=== PATIENT | male | born 1980 | race Caucasian/White ===

== ENCOUNTER 2017-02-02 22:36 | Emergency (ER) | payer SELFPAY ==
[~2017-02-02] VITALS: Ht 188 cm; Wt 66.7 kg
[~2017-02-02 22:36] MED LIST: KEFLEX500 MG PO; MOTRIN IB200 MG PO; TYLENOL325 MG PO
[2017-02-02] MEDS ORDERED: PENICILLIN V P500 MG PO (23:13)
== END 2017-02-02 23:40 | disposition home or self-care (01) ==
LOC: ED 22:36
DX: K02.9 Dental caries, unspecified (principal); F17.200 Nicotine dependence, unspecified, uncomplicated
CPT/HCPCS: 99283

== ENCOUNTER 2017-11-16 22:07 | Emergency (ER) | payer MEDICAID ==
[~2017-11-16] VITALS: Ht 185.4 cm; Wt 59.0 kg
[~2017-11-16 22:07] MED LIST changes: +PENICILLIN V P500 MG PO
[2017-11-16] MEDS ORDERED: IBUPROFEN200 M1 PO (22:16)
[2017-11-16] MEDS ORDERED: PENICILLIN V P500 MG PO (22:26)
== END 2017-11-16 22:36 | disposition home or self-care (01) ==
LOC: ED 22:07
DX: K02.9 Dental caries, unspecified (principal); F17.200 Nicotine dependence, unspecified, uncomplicated
CPT/HCPCS: 99283

== ENCOUNTER 2018-10-17 18:56 | Inpatient (IN) | payer OTHER ==
[~2018-10-17] VITALS: Ht 185.4 cm; Wt 57.0 kg
[~2018-10-17 18:56] MED LIST changes: +IBUPROFEN800 MG PO
--- OUTSIDE RECORDS SUMMARY | 2018-10-17 19:00 | XMS ---
PreManage Notification: RIGOBERTO ATKINS Security Advertising Photographer Events No recent Security Events currently on file CRITERIA MET - Group Notification CARE PROVIDERS There are no care providers on record at this time. Berna has no Care Guidelines for this patient. Shannon VISIT COUNT (12 MO.) 2 ARCHIE Ross TOTAL 2 NOTE: Visits indicate total known visits. ED/UCC VISIT TRACKING (12 MO.) 10/17/2018 18:57 [facility] [place] TYPE: Emergency COMPLAINT: - POSS PNEUMOTHORAX 11/16/2017 22:[address] [facility] [place] TYPE: Emergency COMPLAINT: - DENTAL/MOUTH PAIN,NON INJURY DIAGNOSES: - Nicotine dependence, unspecified, uncomplicated - OTHER SPECIFIED DISORDERS OF TEETH AND SUPPORTING STRUCTURES - Dental caries, unspecified INPATIENT VISIT TRACKING (12 MO.) No inpatient visits to display in this time frame [email or web address]
--- NOTE | 2018-10-17 21:50 | NUR ---
PATIENT ARRIVED FROM ER AND SETTLED INTO BED AND ADMISSION BEGAN.
--- NOTE | 2018-10-17 23:12 | NUR ---
PATIENT'S BOSS JUST BROUGHT IN SOME MCDONALDS TO EAT AND PATIENT'S ORIGINAL ASSESSMENT IS DONE. PAIN DOWN TO 3/10 FROM 8/10 AFTER 1MG IV DILAUDID.
--- NOTE | 2018-10-18 01:07 | NUR ---
CHECKED ON PATIENT AND HE WAS STILL AWAKE WATCHING TV AND PAIN STILL 3/10. PATIENT DECIDED HE WOULD GO TO SLEEP NOW AND I HELPED PATIENT GET SITUATED IN BED. CHEST TUBE STILL HOOKED TO LOW WALL CONTINOUS SUCTION AND NO AIR LEAK DETECTED.PATIENT SAID HE HAD NO OTHER NEEDS AT THIS TIME.
--- NOTE | 2018-10-18 02:26 | NUR ---
DID 2 AM VS AND I+O'S. PATIENT PAIN REMAINS UNDER CONTROL. 2 AM ASSESSMENT IS BASICALY UNCHANGED. PATIENT WAS IN NEED OF NOTHING AT THIS TIME.
--- NOTE | 2018-10-18 03:40 | NUR ---
CHEST TUBE WORKING APPROPRIATELY AND NO AIR LEAK. SATS 93% ON RA WITH HR=72.
--- NOTE | 2018-10-18 06:05 | NUR ---
PATIENT HAS RESTED PRETTY WELL THROUGH THE NIGHT. HE HAD 0.5MG DILAUDID IN THE ER AND THEN 1MG AFTER ARRIVAL ON MED/SURG.CHEST TUBE HAS HAD 15MLS OF RED DRAINAGE AND IS EATING/DRINKING/ AND VOIDING WELL RIGHT CHEST TUBE DRESING SITE INTACT AND WITHIN NORMAL LIMITS. NO CHEST TUBE LEAK AND A CONTINUOUS LOW WALL SUCTION.
--- NOTE | 2018-10-18 06:26 | NUR ---
PATIENT STARTED HAVING INCREASED PAIN WITH PORTABLE CHEST X-RAY 12/14. GIVEN 1MG IV DILAUDID.
--- NOTE | 2018-10-18 06:50 | NUR ---
CONFIRMED WITH VIA PHONE THAT CHEST TUBE IS TO REMAIN AT CONTINUOUS LOW WALL SUCTION.
--- NOTE | 2018-10-18 07:46 | OR ---
[facility] [address] [place], [place] [address] Signed DATE OF OPERATION: 10/17/2018 SURGEON: Sheyla Deleon MD PREOPERATIVE DIAGNOSIS: Spontaneous right-sided pneumothorax. POSTOPERATIVE DIAGNOSIS: Spontaneous right-sided pneumothorax. PROCEDURE PERFORMED: Placement of right-sided chest tube (28-Burmese). ESTIMATED BLOOD LOSS: None. 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 He happens to be tall with a very thin build at 6 foot 1 inches and 130 pounds. About 2:30 today, he had turned and felt some pain and popping in his right side and felt shortness of breath and dyspnea on exertion. He came to the emergency room for evaluation. Chest x-ray showed a moderate-sized right-sided pneumothorax. He tells me this is his 1st such episode. I was asked to see him as a general surgeon on-call here in the emergency room. I met with Rigoberto and his friend. I explained to them the above findings. He understands there is a 10% chance he could develop a pneumothorax on the other side during his lifetime and a 50% chance he can develop a recurrent pneumothorax on the same side. I explained to him that we needed to place a chest tube or allow the lung to re-expand and heal. I reviewed with him the nature of the chest tube along with its placement. There is risk to that procedure including, but not limited to bleeding, infection, scarring, change in contour of the skin as well as possible need for additional procedures. He had expressed understanding and wished to proceed. PROCEDURE NOTE: Rigoberto was kept supine and semi-recumbent in his ER bed. His entire right chest wall was prepped and draped in usual sterile fashion. Approximately 30 mL of 1% lidocaine with epinephrine was injected into the chest wall and then between the intercostal space. A transverse incision was made sharply with a 10 blade knife and a tunnel was developed over the rib with the help of the Pean clamp. We then entered one rib above our incision without difficulty and he has tolerated that quite well. The 28-Burmese Electronically Signed By: SHEYLA DELEON MD 10/18/18 0746 PATIENT NAME: RIGOBERTO ATKINS OPERATIVE REPORT DATE OF : 84 REPORT #: [id number] PHYSICIAN: SHEYLA DELEON MD PCP: NO PRIMARY CARE PHYSICIAN REPORT IS CONFIDENTIAL AND NOT TO BE RELEASED WITHOUT AUTHORIZATION [facility] [address] [place] [id number] Signed chest tube was easily inserted without resistance up to 12 cm. It was connected toward atrium and course he had a small air leak. Silk suture was used to hold it onto his chest wall. Dry gauze and tape were then applied. Rigoberto had tolerated procedure quite well. Our portable chest x-ray is pending. MD RODERICK Rojas/ALYSONL /[id number] cc: Sheyla Deleon MD Copies: SHEYLA DELEON MD ~ Electronically Signed By: SHEYLA DELEON MD 10/18/18 0746 PATIENT NAME: RIGOBERTO ATKINS OPERATIVE REPORT DATE OF : 84 REPORT #: [id number] PHYSICIAN: SHEYLA DELEON MD PCP: NO PRIMARY CARE PHYSICIAN REPORT IS CONFIDENTIAL AND NOT TO BE RELEASED WITHOUT AUTHORIZATION
--- NOTE | 2018-10-18 08:14 | NUR ---
pt sitting up in bed reports pain 4/10 two norco given at this time, with apple sauce pt reports he does not feel like ordering a breakfast at this time, chest tube is in place lungs sounds are clear dressing is clean dry intact., negative 20 suction setting to wall suction at this time. minimal drainage over night at 13ml.
--- NOTE | 2018-10-18 08:56 | NUR ---
PT REFUSED BREAFAST. PT STATES VERY TIRED AND NEEDS SLEEP. PT HAS NOT VOIDED SINCE 5A.M. PT HAS NO NEEDS AT THIS TIME.
--- NOTE | 2018-10-18 09:05 | NUR ---
ROUNDED IN ROOM VERBALIZED TO PATIENT AND RN THAT OK TO REMOVE FROM SUCTION TO AMBULATE.
--- NOTE | 2018-10-18 11:11 | NUR ---
PT UP AMBULATING IN HALLS AT THIS TIME WITH FIELD SUPPORT ENGINEER.
[2018-10-18] MEDS ORDERED: CYCLOBENZAPRINE10 MG PO (11:20)
--- NOTE | 2018-10-18 11:20 | NUR ---
MED REC COMPLETE
--- NOTE | 2018-10-18 12:09 | NUR ---
PT SITTING UP AT BEDSIDE VISITNG WITH GUEST, REPORTS PAIN 5/10, TWO TABS NORCO ADMINISTERED. CHEST TUBE OPERATING WNL, SUCTION ATTACHED.
--- NOTE | 2018-10-18 14:17 | NUR ---
PT HAS NOT VOIDED SINCE 5 A.M. NURSE NOTIFIED. PT SLEEPING IN BED. PT WILL INCREASE FLUIDS.
--- NOTE | 2018-10-18 16:41 | NUR ---
PT HAS BEEN UP AMBULATING IN HALLS, USING I.S. BREATHING EXERCISES, CHEST TUBE CONTAINER ASSESSMENT HAS WALL SUCTION -20, WNL, NO AIR LEAKS INDICATED. DRESSING INTACT AT RIGHT LATERAL CHEST WALL. PT HAS SMALL APPETITE, TOELRATING NORCO PO FOR PAIN MANAGEING PAIN WELL. CXR THIS AM SHOWS RESOLUTION OF PNEUMOTHORAX.
--- NOTE | 2018-10-18 20:06 | NUR ---
PAINT TRIMMER PIPE BOWLS ROUNDING NOTE. PT REQUESTS TO AMBULATE IN [place]. CHEST TUBE CLAMPED, IV SL. PT AMBULATES X2 LAPS IN [place], TOLERATED WELL. PT REPORTS SLIGHT INCREASE IN PAIN, DENIES PRN. PT ASSISTED BACK TO BED. CHEST TUBE UNCLAMPED AND RECONNECTED TO SUCTION, IV RECONNECTED TO FLUIDS. PT DENIES FURTHER NEEDS AT THIS TIME. CALL LIGHT IN REACH.
--- NOTE | 2018-10-18 21:18 | NUR ---
walked hallways earlier, tolerated well. Back to room . in bed, CT r lateral side. patent, draining small amount of ss drainage, insertion site dressing CDI. Coop with assessment. on room air. watching tv
--- NOTE | 2018-10-18 22:31 | NUR ---
V/S AND I&O DONE AND CHARTED.
--- NOTE | 2018-10-19 00:03 | NUR ---
RESTING, EYES CLOSED, ON ROOM AIR. R CHEST TUBE INTACT, DRAINING . NO FURTHER C/O PAIN. CALL LIGHT AND FLUIDS AT BEDSIDE
--- NOTE | 2018-10-19 01:50 | NUR ---
AWAKENS EASILY, NO C/O PAIN, NO SOB, NO LIGHTHEADNESS. ON ROOM AIR. RIGTH CHEST TUBE INTACT, PATENT. DRAINING SMALL AMOUNTS SS DRAINAGE. CALL LIGHT AND FLUIDS AT BEDSIDE
--- NOTE | 2018-10-19 05:26 | NUR ---
R CHEST TUBE IN PLACE, SITE INTACT, PATENT, DRAINING SMALL AMOUNT SEROUS DRAINAG. SLIGHTLY DIM SOUNDS ON R SIDE. NO C/O SOB, ON ROOM AIR. WALKED AROUND HALLWAYS AND TOLERATED WELL. WAS MEDICATED WITH NORCO [address] INSERTION SITE PAIN. MED AEFFECTIVE. TOLERATING DIET WELL. CALL LIGHT AND FLUDIS AT BEDSIDE
--- NOTE | 2018-10-19 07:38 | NUR ---
REPORT RECEIVED FROM RN DAJA. PT CHEST TUBE ASSESSED ADN TUBE CONNECTION TIGHTENED FOR SMALL LEAK. PT STATES HIS CHEST IS SORE AND A LITTLE SOB, BUT NOTHING LIKE BEFORE TUBE.
--- NOTE | 2018-10-19 08:28 | NUR ---
PATIENT WAS AWAKE, FACE WASHED. FRESH WATER GIVEN CALL LIGHT IN REACH NO OTHER NEEDS AT THIS TIME.
--- NOTE | 2018-10-19 09:08 | NUR ---
PT SITTING UPRIGHT IN BED. CHEST TUBE IN PLACE WITH NO BUBBLING JUST FLUCUATION WITH BREATHS. PT STATES HE IS HAVING 4/10 PAIN IN RIGHT UPPER QUAD. AND SITE PAIN WITH MOVEMENT. LUNGS CLEAR BUT SIGNIFICANTLY MORE DIM ON RIGHT LOWER LOBE. NO DRAINAGE NOTED ON DRESSING. PT GIVEN 2 NORCO FOR PAIN AND HE WOULD LIKE TO TAKE A NAP.
--- NOTE | 2018-10-19 14:44 | NUR ---
CHANGED OUT IV BAG. PT DENIES NEEDS ATT. CHEST TUBE WATER SEALED AND WNL. PAIN TOLERABLE ATT.
--- NOTE | 2018-10-19 15:31 | NUR ---
SPOKE WITH [employer] DIRECTOR AMIRA WHO STATES SHE SPOKE WITH PATIENT REGARDING POSSIBLE INSURANCE COVERAGE. PENDING APPLICATION.
--- NOTE | 2018-10-19 17:40 | NUR ---
HOOKED PT BACK UP TO WALL SUCTION AND EXPLAINED WHY. WNL. PT DENIES NEEDS ATT.
--- NOTE | 2018-10-19 20:04 | NUR ---
RECEIVED REPORT FORM DAY SHIFT RN. PATIENT IS RESTING IN BED CHEST TUBE IN PLACE AND WNL. PATIENT DENIES ANY NEEDS. CALL LIGHT IN REACH.
--- NOTE | 2018-10-19 21:00 | NUR ---
PATIENT ASSESMENT COMPLETED. VITALS TAKEN AND COMPLETED. PATIENTS INTAKE AND OUPUT RECORDED. CHEST TUBE IN PLACE AND WNL, NO NEW DRAINAGE NOTED. INSERTION SITE C/D/I. PATIENT DENIES ANY SOB. PATIENT IS ON RA AND CPOX IN PLACE. PATIENT RATES PAIN IN HIS RIGHT UPPER CHEST AT A 4/10. PATIENT GIVEN PRN PAIN MEDICATION PER ORDER. PATIENT WISHES TO AMBULATE IN THE HALLWAT AT THIS TIME. PATIENT IS STEADY ON HIS FEET. PATIENT IS AMBULATING INDEPENDENTLY IN THE HALLWAY AT THIS TIME. PATIENT AGREES TO CALL WHEN HE IS BACK IN HIS ROOM.
--- NOTE | 2018-10-19 22:00 | NUR ---
PATIENT IS BACK IN ROOM RESTING IN BED. PATIENTS CHEST TUBE HOOKED BACK UP TO LOW CONT WALL SUCTION. PATIENT REMAINS ON ROOM AIR. CPOX IN PLACE. PATIENT DENIES ANY SOB OR SOB DURING AMBULATION. PATIENT DENIES ANY NEEDS. IV INFUSING PER ORDER. CALL LIGHT IN REACH.
--- NOTE | 2018-10-19 23:48 | NUR ---
PATIENT IS RESTING IN BED WITH EYES CLOSED. PATIENT REMAINS ON RA. CPOX WNL. CALL LIGHT IN REACH.
--- NOTE | 2018-10-20 01:39 | NUR ---
PATIENT CALLED TO ALERT STAFF THAT HIS IV WAS BEEPING. IV FLUIDS INFUSING PER ORDER. PATIENT RATES PAIN AT A 5/10. PATIENT GIVEN PRN PAIN MEDICATION PER ORDER. CHEST TUBE WNL. NO FURTHER NEEDS NOTED. PATIENT REMAINS ON RA AND CPOX IN [place]. CALL LIGHT IN REACH.
--- NOTE | 2018-10-20 03:32 | NUR ---
PATIENT IS RESTING IN BED WITH EYES CLOSED. CPOX WNL. CALL LIGHT IN REACH.
--- NOTE | 2018-10-20 04:43 | NUR ---
PATIENT RESTED WELL THROUGHOUT THE SHIFT. PATIENT RECEIVED PRN PAIN MEDICATION X2. PATIENT DENIED ANY SOB. PATIENT REMAINS ON RA AND CPOX IN USE. PATIENT HAS CHEST TUBE HOOKED TO LOW CONTINUOUS AND FUNCTIONING WNL. PATIENT WAS ABLE TO AMBULATE MULTIPLE LAPS IN THE HALLWAY. IV INFUSING PER ORDER. PATIENT IS AAOX3.
--- NOTE | 2018-10-20 06:59 | NUR ---
PATIENTS MORNING MEDICATIONS GIVEN PER ORDER. PATIENT RATES PAIN AT A 2/10. PATIENT DENIES THE NEED FOR PAIN MEDICATION AT THIS TIME. PATIENT IS UP AMBULATING IN THE HALLWAY. PATIENT WILL CALL WHEN HE RETURNS TO ROOM.
--- NOTE | 2018-10-20 09:02 | NUR ---
Patient is awake, patient walked to the restroom with 1 PA. patient breakfast is ordered, fresh water given, call light in reach. no other needs at this time.
--- NOTE | 2018-10-20 14:20 | NUR ---
ADMIN NORCO ONE TAB FOR REPORTS OF 4/10 RIGHT RIB PAIN. PT DENIES SOB AND CHEST PAIN. CHEST TUBE TO RIGHT CHEST INTACT, PATENT, TO WALL SUCTION, NO AIR LEAK NOTED. PT DENIES NEEDS. CPOX INTACT 97% ON RA. PERSONAL SUPPLIES AND CALL LIGHT WITHIN REACH.
--- NOTE | 2018-10-20 18:24 | NUR ---
WALL SUCTION, LOW CONT SUCTION. WALKED IN HW INDEPENDENT. RA, CPOX INTACT. DENIES CHEST PAIN, SOB. CHEST TUBE PATENT AND DRAIN SAROSANG DRAINAGE NOTED. TOLERATING REG DIET. NORCO FOR PAIN.
--- NOTE | 2018-10-20 19:50 | NUR ---
RECEIEVED REPORT FROM DAY SHIFT RN. PATIENT IS RESTING IN BED VISITING WITH FAMILY NO NEEDS NOTED. CALL LIGHT IN REACH.
--- NOTE | 2018-10-20 20:47 | NUR ---
PT CALLED, BACK IN BED AFTER USING BR, CHEST TUBE TO WALL SUCTION. IV INFUSING PER ORDER. VS AND I/O COMPLETED, WNL. FRESH ICE WATER, ICE GIVEN TO PT PER REQUEST.
--- NOTE | 2018-10-20 21:00 | NUR ---
PATIENT IS ON THE PHONE AT THIS TIME. WILL RETURN
--- NOTE | 2018-10-20 21:51 | NUR ---
PATIENT ASSESMENT COMPLETED. PATIENTS EVENING MEDICATIONS GIVEN PER ORDER. PATIENT RATES PAIN AT A 4/10. PATIENT DENIES THE NEED FOR PAIN MEDICATION AT THIS TIME. RT IN ROOM. CREPITUS NOTE ON LOWER FRONT OF CHEST TUBE INSERTION SITE. PATIENT DENIES ANY SOB. CHEST TUBE IN PLACE, ON LOW CONTINUOS SUCTION, AND CHAMBER IS WNL. NO FURTHER NEEDS NOTED. CALL LIGHT IN REACH.
--- NOTE | 2018-10-20 23:30 | NUR ---
PATIENT GIVEN PRN PAIN MEDICATION FOR C/O 4/10 RIGHT SIDE CHEST AND BACK PAIN. PT AWAKE SITTING UP IN BED WATCHING TV. NO OTHE REQUESTS AT THIS TIME, CALL LIGHT IN REACH.
--- NOTE | 2018-10-21 01:44 | NUR ---
PATIENTS VITALS TAKEN AND RECORDED. PATIENT DENIES ANY SOB. PATIENT STATED PAIN IS 3/10. PATIENT DENIES THE NEED FOR PAIN MEDICATION AT THIS TIME. PATIENTS CHEST TUBE IS WNL. CREPITUS UNCHANGED. NO NEEDS NOTED. CALL LIGHT IN REACH.
--- NOTE | 2018-10-21 03:15 | NUR ---
PATIENT IS RESTING IN BED. PATIENT AWOKEN WHEN ROOM WAS ENTERED. PATIENT RATES PAIN AT A 3/10. PATIENT DENIES THE NEED FOR PAIN MEDICATION. NO NEEDS NOTED. CALL LIGHT IN REACH.
--- NOTE | 2018-10-21 04:55 | NUR ---
PATIENT RESTED WELL DURING THE LATER PART OF THE SHIFT. PATIENT IS ON A REGULAR DIET, TOLERATING WELL, NO NAUSEA NOTED. PATIENT IS A SBA. PATIENT IS ON RA AND CPOX IN USE. PATIENT DENIED ANY SOB. PATIENT HAS CHEST TUBE IN PLACE TO LOW CONT SUCTION. PATIENT HAS A SMALL AMOUNT OF CREPITUS NOTED, THAT IS UNCHANGED. PATIENT IS AAOX3 AND CALLS APPROPRIATELY.
--- NOTE | 2018-10-21 06:10 | CONS ---
[facility] [address] [place], [place] [address] Signed DATE OF CONSULTATION: 10/19/2018 CHIEF COMPLAINT: Right-sided chest pain. HISTORY OF PRESENT ILLNESS: Douglas is a 38-year-old young man who has a tall, asthenic build at 6 feet 1 inches 130 pounds. He around 0230 hours, the day of admission, he felt some popping and a right-sided chest pain with some shortness of breath and dyspnea on exertion as he tried to walk to work. He had gone to an Urgent Care Clinic and had been given some ibuprofen and Flexeril. He was allowed to go home. Later, the radiologist called him to explain to him that his chest x-ray showed a pneumothorax and he did go to his local emergency room. In our local emergency room, of course, the repeat chest x-ray revealed his moderate-sized pneumothorax. I had been asked to see him urgently then in the emergency room regarding his 1st episode of a spontaneous pneumothorax. PAST MEDICAL HISTORY: None. PAST SURGICAL HISTORY: Dental extractions. SOCIAL HISTORY: Smokes 1/2 pack of cigarettes a day. He does not drink. He has no primary care provider. 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 He prefers the [facility]. FAMILY HISTORY: Douglas is not overly familiar with his family. There are in [facility] just [facility]. REVIEW OF SYSTEMS: Ten systems reviewed and no major issues and no metal in his body. ALLERGIES: None. MEDICATIONS: Ibuprofen and Flexeril. They gave him at the Urgent Care Clinic. PHYSICAL EXAMINATION: VITAL SIGNS: Blood pressure 124/83, heart rate 81, respiratory rate 16, temperature is 98.1. He is between 96% and 100% on room air. He is 6 feet 1 inch tall, 130 pounds (56 Electronically Signed By: SHEYLA DELEON MD 10/19/18 0630 Electronically Signed By: SHEYLA DELEON MD 10/21/18 0629 PATIENT NAME: DOUGLAS ATKINS CONSULTATION DATE OF : 84 REPORT #: [id number] PHYSICIAN: SHEYLA DELEON MD PCP: NO PRIMARY CARE PHYSICIAN REPORT IS CONFIDENTIAL AND NOT TO BE RELEASED WITHOUT AUTHORIZATION [facility] [address] [place], [place] [address] Signed kg). GENERAL: Douglas is a 38-year-old gentleman, lying supine semi-recumbent in his ER bed. His friend is at the bedside. Our nurse is with us. Douglas can talk in full sentences. CHEST: He has no increased work of breathing. No shortness of breath. He does feels a little tightness in his right chest. However, he is generally clear to auscultation bilaterally. HEART: Regular rate and rhythm. ABDOMEN: Soft, nontender. LABORATORY DATA: His white blood cell count 17.5, his hemoglobin is 15, neutrophils are 86, platelets are 229. BUN 12, creatinine 1.0. His albumin is 4.6. The liver function tests are negative. RADIOGRAPHIC STUDIES: Chest x-ray is reviewed. He does have moderate sized right pneumothorax. ASSESSMENT AND PLAN: Douglas is a 38-year-old gentleman who presents with his 1st episode of a right-sided spontaneous pneumothorax. I reviewed with him this concept of a spontaneous pneumothorax. He is well aware that he has a 50% chance of a recurrence on the same side and a 10% chance of pneumothorax on the other side in his lifetime. We did review the need to currently place a chest tube to allow the lung to re-expand and heal. If it will not heal or he develops a recurrent pneumothorax or pneumothorax on the other side, he would end up with either chemical or mechanical pleurodesis. I reviewed with him the chest tube placement along with its risks including, but not limited to bleeding, infection, scarring, change in contour of the skin as well as inability for his lung to heal and/or the need for additional procedures as described above. He is aware he will be in the hospital a few days. He expressed understanding and would like to proceed. Sheyla Deleon MD ALB/MODL /[id number] Electronically Signed By: SHEYLA DELEON MD 10/19/18 0630 Electronically Signed By: SHEYLA DELEON MD 10/21/18 0629 PATIENT NAME: DOUGLAS ATKINS CONSULTATION DATE OF : 84 REPORT #: [id number] PHYSICIAN: SHEYLA DELEON MD PCP: NO PRIMARY CARE PHYSICIAN REPORT IS CONFIDENTIAL AND NOT TO BE RELEASED WITHOUT AUTHORIZATION [address] [address] Signed Copies: ~ Electronically Signed By: SHEYLA DELEON MD 10/19/18 0630 Electronically Signed By: SHEYLA DELEON MD 10/21/18 0629 PATIENT NAME: DOUGLAS ATKINS CONSULTATION DATE OF : 84 REPORT #: [id number] PHYSICIAN: SHEYLA DELEON MD PCP: NO PRIMARY CARE PHYSICIAN REPORT IS CONFIDENTIAL AND NOT TO BE RELEASED WITHOUT AUTHORIZATION
--- NOTE | 2018-10-21 06:41 | NUR ---
PATIENTS VITALS TAKEN AND RECORDED. PATIENTS MORNING MEDICATIONS GIVEN PER ORDER. DR SEWELL IN TO SEE PATIENT. PATIENTS CHEST TUBE IS NOW TO WATER SEAL. PATIENT GIVEN PRN PAIN MEDICATION PER ORDER. PATIENT DENIES ANY FURTHER NEEDS. CALL LIGHT IN REACH.
--- NOTE | 2018-10-21 07:38 | NUR ---
Pt sleeping at this time, resp even and non labored. Pt is on cpox, sat level is 97% on ra. Personal supplies and call light within reach. No needs at this time.
--- NOTE | 2018-10-21 07:41 | NUR ---
PT DID INQUIRE TO HAVING A CHW VISIT WITH HIM AND HELP HIM BECOME ESTABLISHED WITH A PCP. STATES HE WAS A PT OF DR GOODMAN LIKE 20 YEARS AGO OR SO. ALSO INTERESTED IN GETTING A CANE TO USE.
--- NOTE | 2018-10-21 10:46 | NUR ---
PATIENT IN BED RESTING. WARM WASHCLOTH OFFERED. WATER REFRESHED. CALL LIGHT IN REACH. NO FUTHER NEEDS AT THIS TIME.
--- NOTE | 2018-10-21 11:03 | NUR ---
Pt sleeping, resp even and non labored. Oxygen sat level is 97% on ra. Chest tube patent, to water seal, no air leak. Personal supplies and call light within reach. No needs at this time.
--- NOTE | 2018-10-21 13:41 | NUR ---
ADMIN NORCO 5/325MG PO FOR REPORTS OF 5/10 RIGHT CHEST INCISION SITE PAIN. PT TOLERATED A GOOD NAP THIS AFTERNOON. RIGHT CHEST TUBE INTACT, PATENT. CREPITUS TO RIGHT LUNG FIELD LESS THIS AFTERNOON. PT DENIES CHEST PAIN AND SOB, SAT LEVEL 99% ON RA. CHEST TUBE TO WATER SEAL, NO AIR LEAK NOTED. PT DENIES NEEDS. PERSONAL SUPPLIES AND CALL LIGHT WITHIN REACH.
--- NOTE | 2018-10-21 15:34 | NUR ---
PT SITTING UP IN IN BED, RESPIRATION EVEN AND NON LABORED. CPOX INTACT, 02 SAT LEVEL 98% ON RA. CHEST TUBE TO RIGHT CHEST, TUBE INTACT, PATENT TO WATER SEAL. PT DENIES CHEST PAIN AND SOB. ENCOURAGED PT TO TAKE A WALK. CHEST XRAY TO BE DONE HERE SOON PER SCHEDULE. PERSONAL SUPPLIES AND CALL LIGHT WITHIN REACH. NO NEEDS AT THIS TIME.
--- NOTE | 2018-10-21 15:43 | NUR ---
PATIENT IN BED RESTING. WATER REFRESHED, ICE GIVEN. CALL LIGHT IN REACH. NO FUTHER NEEDS AT THIS TIME.
--- NOTE | 2018-10-21 15:50 | NUR ---
PT UP IN HALLWAY WALKING. PT TOLERATING WALK WELL. PT DENIES SOB.
--- NOTE | 2018-10-21 16:08 | NUR ---
WHILE PT UP WALKING IN HALLWAY CHEST TUBE BECAME DISCONNECTED FROM PLEURA VAC DEVICE. TUBE CLEANSED WITH ALCHOL ON BOTH ENDS, THEN RESECURED WITH TAPE. PT DENIES CHEST PAIN AND SOB. PT REQUESTS TO CONTINUE WALKING. SITE AT CHEST LOOKS WNL'S, TUBE INTACT TO CHEST. DR. SEWELL BOTIFIED REGARDING EVENT. DR. SEWELL INSTRUCTED ME TO TO CLEANSE SITE WITH ALCOHOL AND RECONNECT WITH TAPE. DISCUSSED WITH PROVIDER PT CONTINUING TO WALK. NO NEW ORDERS AT THIS TIME. PT TOLERATING WALK WELL AT THIS TIME. WILL CONTINUE TO MONITOR.
--- NOTE | 2018-10-21 17:30 | NUR ---
SPOKE TO DR. SEWELL REGARDING INCREASED PNEUMO RESULTS PER MOST RECENT CHEST XRAY. ORDER TO KEEP CHEST TUBE TO WATER SEAL. WILL CONTINUE TO MONITOR.
--- NOTE | 2018-10-21 17:48 | NUR ---
ADMIN TWO TABS NORCO 5/325MG PO FOR REPORTS OF 5/10 RIGHT CHEST INCIONS SITE PAIN.
--- NOTE | 2018-10-21 18:36 | NUR ---
A&OX3. RA, CPOX; SAT LEVEL HIGH 90'S THROUGH SHIFT. PT DENIES CHEST PAIN AND SOB. CHST XRAY 10/[address] SEWELL AWARE. CHEST TUBE TO WATER SEAL. D5LR@30ML/HR. LBM 10/17. PT DENIES BOWEL AID. CREPITUS NOTED TO RIGHT CHEST. DR. SEWELL TO FOLLOW UP IN AM WITH CHEST XRAY AND CONSULT WITH SPECIALIST PER HIS REPORT. VS STABLE.
--- NOTE | 2018-10-21 21:18 | NUR ---
SITTING UP IN BED, WATCHING TV. R CT INTACT. ON ROOM AIR. NO C/O RESP DISTRESS OR SOB, NO C/O PAIN. COOP WITH ASSESSMENT
--- NOTE | 2018-10-21 22:17 | NUR ---
WATCHING TV, C/O 10/14 R CHEST TUBE INSERTION SITE. MEDICATED WITH 2 NORCO. WATCHING TV, NO C/O SOB
--- NOTE | 2018-10-21 22:56 | NUR ---
PATIENT UP TO THE RESTROOM, STB ASSIST 1P, PATIENT BACK TO BED. NO OTHER NEEDS AT THIS TIME,
--- NOTE | 2018-10-22 02:08 | NUR ---
resting, no distress, on room air, awakes easily. r chest tube intact to water seal, patent, draining scant amounts of yellow-pink colored drainage. tolerating diet well.
--- NOTE | 2018-10-22 03:28 | NUR ---
RESTING, NO DISTRESS, R CHEST TUBE IN PLACE TO WATER SEAL, DRAINING SCANT AMOUNT OF SEROUS DRAINAGE. NO C/O PAIN, NO RESP DISTRESS HOB, IVF INFUSING
--- NOTE | 2018-10-22 05:02 | NUR ---
up to br, voided clear urine, qs. back to bed, r chest tube in place to wall suctions, patent, scdan amount мария serous drainage. medicated with 2 norco r chest tube insertion site pain. call light at bedside, hob elevted. tolerating fluids well
--- NOTE | 2018-10-22 05:53 | NUR ---
CURRENTLY RESTING, NO C/O SOB, R LATERAL CHEST TUBE INSERTION SITE TENDER, CT IN PLACE, CDI, TO WATER SEAL, DRAINED 5CC SEROUS DRAINAGE THIS SHIFT. MEDICATED WTIH NORCO X2 PER PAIN WITH GOOD PAIN RELIEF. DECLINES SCDS THIS AM. CALL LIGHT AND FLUIDS AT BEDSIDE
--- NOTE | 2018-10-22 07:20 | NUR ---
REPORT RECEIVED FROM DAJA WRAY. PT RESTING IN BED. REPORTS 3/10 PAIN THAT IS TOLERABLE AT THIS TIME. CHEST TUBE WNL. PT REPORTS DIFFICULT SLEEPING BECAUSE PULSE OX WAS "BEEPING." SETTINGS ADJUSTED. BREAKFAST ORDERED FOR PT. PULSE OX READING 99% ON ROOM AIR, HR = 56. PT DENIES ADDITIONAL REQUESTS OR COMPLAINTS. AT THIS TIME. CALL LIGHT WITHIN REACH.
--- NOTE | 2018-10-22 07:59 | NUR ---
PATIENT SITTING UP IN BED WATCHING TV. PATIENT'S HANDS AND FACE CLEANED. CALL LIGHT WITHIN REACH. NO OTHER NEEDS AT THIS TIME
--- NOTE | 2018-10-22 08:50 | NUR ---
PATIENT IS WALKING IN THE HALLWAY. PATIENT WALKED 6 LAPS.
--- NOTE | 2018-10-22 09:10 | NUR ---
MORNING ASSESSMENT AND MEDICATIONS DUE. THIS RN TO BEDSIDE. PT REPORTS 4/10 PAIN "WHERE THE TUBE GOES IN." SEE MAR FOR MEDICATION GIVEN. CHEST TUBE ASSESSED, UNT BELOW CHEST LEVEL. CHEST TUBE TO WATER SEAL OPORATION WITH NO SUCTION IN PLACE ORDERED. WATER SEAL FLUCTUATING WITH PT BREATHS. NO AIR LEAKS NOTED. WATER NOTED BE BE BELOW 2CM GLORIA ON WATER SEAL. STERILE SALINE ADDED TO BRING WATER UP TO 2 CM GLORIA. DRESSING C/D/I. NO CREPITIS FELT WITH ASSESSMENT. LUNG SOUNDS HEARD AND CLEAR IN ALL LOBES. NO ADDITIONAL DRAINAGE NOTED IN CANISTER SINCE LAST SHIFT. PT UP TO RESTROOM. AND UP TO AMBULATE AROUND UNIT. PT COMPLETES 5 LAPS WITH THIS RN AND CONTINUES WALKING ON HIS OWN. PT DENIES ADDITIONAL REQUESTS OR COMPLAINTS AT THIS TIME. CALL LIGHT WITHIN REACH.
--- NOTE | 2018-10-22 09:47 | NUR ---
PATIENT SITTING UP IN BED WATCHING TV. VITAL SIGNS AND I&O DONE. CALL LIGHT WITHIN REACH. NO OTHER NEEDS AT THIS TIME
--- NOTE | 2018-10-22 11:03 | NUR ---
THIS RN TO ROOM TO CHECK ON PT. PT REPORTS 3/10 PAIN AND DENIES NEED FOR ADDITIONAL PAIN MEDICATION AT THIS TIME. PT DEMONSTATES USE OF INCENTIVE SPIROEMTER. CHEST TUBE WNL. PULSE OX READS 99% ON ROOM AIR. NO ADDTIONAL REQUESTS OR COMPLAINTS AT THIS TIME. CALL LIGHT WITHIN REACH.
--- NOTE | 2018-10-22 11:50 | NUR ---
NOON ASSESSMENT DUE. THIS RN TO BEDSIDE. MD TO BEDSIDE FOR ROUNDS. MD NOTES AIR LEAK WHEN PT COUGHS. CONSULTATION WITH [facility] PLANED, IMAGES SENT TO [facility] PER MD ORDER. PT UPDATED ON PLAN OF CARE. PT VERBALIZES UNDERSTANDING. ASSESSMENT DONE. LUNG SOUNDS PRESENT IN ALL LOBES. RLL MORE HALLOW SOUNDS HEARD. PT REPORTS 3/10 PAIN AND DENIES NEED FOR ADDITONAL PAIN MEDICAITON AT THIS TIME. CHEST TUBE WNL, WATER SEAL PRESENT 2 CM, FLUCUTATIONS WITH BREATHING NOTED, AIR LEAK ONLY WITH COUGHING. DRESSING C/D/I. PT VERBALIZES UNDERSTANDING OF PLAN OF CARE AND STATES HIS QUESTIONS HAVE BEEN ANSWERED. PT DEMONSTRATES USE OF INCENTIVE SPIROMETER REACHING 2500. PT EATING LUNCH AND WATCHING TV. NO ADDITIONAL REQUESTS OR COMPLAINTS AT THIS TIME. CALL LIGHT WITHIN REACH.
--- NOTE | 2018-10-22 13:30 | NUR ---
PATIENT SITTING UP IN BED. VITAL SIGNS AND I&O DONE. CALL LIGHT WITHIN REACH. NO OTHER NEEDS AT THIS TIME
--- NOTE | 2018-10-22 13:37 | NUR ---
THIS RN TO ROOM TO CHECK ON PT. PT REPORTS 4/10 PAIN. SEE MAR FOR MEDIACATION GIVEN. PT UP TO AMBULATE X6 LAPS IN [place]. PT NOW BACK TO BED AND "READY FOR A NAP." PIV FLUIDS RESTARTED. SIGN POSTED PER PT REQUEST. CHEST TUBE WNL OTHER THAN AIR LEAK WITH COUGH. PT DENIES ADDITIONAL REQUESTS OR COMPLAINTS AT THIS TIME. CALL LIGHT WITHIN REACH.
--- NOTE | 2018-10-22 15:42 | NUR ---
PATIENT SITTING UP IN BED. FINAL VITAL SIGNS WERE OBTAINED PRIOR TO DISCHARGE FROM THE UNIT. CALL LIGHT WITHIN REACH. NO OTHER NEEDS AT THIS TIME
--- NOTE | 2018-10-22 16:00 | NUR ---
THIS RN TO ROOM TO CHECK ON PT. PT REPORTS 2/10 PAIN. PT UPDATED ON PLAN OF CARE AND TRANSFER PROCESS. PT VERBALIZES UNDERSTANDING AND STATES HIS QUESITONS HAVE BEENANSWERD. PT ASSITED WITH PACKING UP BELONGINGS. SBA UP TO RESTROOM AND BACK TO BED. PT UPDATING FAMILY AND FRIENDS. NO ADDITIONAL REQUESTS OR COMPLAINTS. AWIATING TRANSFER PERSONE[facility].
--- NOTE | 2018-10-22 16:39 | NUR ---
PTS FAMILY FRIEND, ELMER, CALLED FOR UPDATE. ELMER UPDATED PER PT REQUEST. ELMER VERBALIZES UNDERSTANDING OF PLAN OF CARE AND STATES ALL HER QUESTIONS HAVE BEEN ANSWERED.
--- NOTE | 2018-10-22 16:47 | NUR ---
HELPED PATIENT PUT ON SCRUB PANTS AND A NEW GOWN. SITTING UP ON THE SIDE OF THE BED.
--- NOTE | 2018-10-22 16:53 | NUR ---
PATIENT SITTING UP ON THE EDGE OF THE BED. FINAL VITAL SIGNS DONE AGAIN BEFORE TO DISCHARGE FROM THE UNIT.
--- NOTE | 2018-10-22 17:00 | NUR ---
EMS [facility]ERS[facility] ARRIVED TO TRANSFER PT. REPORT GIVEN, QUESTIONS ASKED AND ANSWERED. EMS P[facility]ONE[facility] VERBALIZE UNDERSTANDING AND STATE THEIR QUESTIONS HAVE BEEN ANSWERED. FLUIDS SWITCHED TO STRIGHT TUBING PER EMS PREFERENCE. PT TRANSFERES SELF TO STRETCHER. CHEST TUBE IN PLACE AND WNL BELOW LEVEL OF INCERTION. NO ADDTIONAL REQUESTS OR COMPLAINTS AT THIS TIME. [facility] CALLED, REPORT GIVEN TO AMY MURPHY RN WHO STATES HER QUESTIONS HAVE BEEN ANSERED.
== END 2018-10-22 17:03 | disposition short-term general hospital (02) | DRG 201 ==
LOC: ED 18:56 → MS 21:18
PROVIDERS: ADMIT Colon & Rectal Surgery
PROC: 0W9930Z Drainage of Right Pleural Cavity with Drainage Device, Percutaneous Approach (ICD-10-PCS; principal; 2018-10-17)
DX: J93.83 Other pneumothorax (principal); F17.210 Nicotine dependence, cigarettes, uncomplicated; J93.82 Other air leak
CPT/HCPCS: 71045; 80053; 85025; 94761; 94762; 96374; 99284-25; 99406; C9113; J1170; J1644; J7120